=== PATIENT | male | born 1970 | race Caucasian/White ===

== ENCOUNTER 2017-08-04 12:54 | Emergency (ER) | payer SELFPAY ==
[~2017-08-04] VITALS: Ht 172.7 cm; Wt 68.0 kg
[2017-08-04 13:02] VITALS: BP 120/72; PULSE 54; RESP 16; TEMP 98.2; O2SAT 100
[2017-08-04] MEDS ORDERED: SODIUM CHLOR 0.9% 1000 ML INJ 1,000 ML IV ONE (13:14)
[2017-08-04] MEDS ORDERED: MORPHINE SULFATE 4 MG/ML INJ IV PUSH ONE (13:15)
[2017-08-04] MEDS ORDERED: SODIUM CHLORIDE 0.9% FLUSH 10 ML FLUSH IVF PRN (13:15)
[2017-08-04] MEDS ORDERED: PROCHLORPERAZINE INJ 10 MG/2 ML VIAL IVP ONE (13:15)
[2017-08-04] MEDS ORDERED: diphenhydrAMINE HCL 50 MG/ML VIAL IVP ONE (13:15)
[2017-08-04 13:16] VITALS: BP 130/59; PULSE 43; RESP 15; O2SAT 95; O2SAT 98
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
--- NOTE | 2017-08-04 13:49 | RADRPT ---
EXAM DATE/TIME: 08/04/2017 13:18 [facility] COMPARISON: CT BRAIN W/O CONTRAST, August 01, 2017, 4:29. INDICATIONS : Head pain, nausea, vomiting, low heart rate. RADIATION DOSE: 56.48 CTDIvol (mGy) MEDICAL HISTORY : Subdural hematoma 08/10/17 SURGICAL HISTORY : None. ENCOUNTER: Subsequent ACUITY: 3 days PAIN SCALE: 10/10 LOCATION: cranial TECHNIQUE: Multiple contiguous axial images were obtained of the head. Using automated exposure control and adj ustment of the mA and/or kV according to patient size, radiation dose was kept as low as reasonably a chievable to obtain optimal diagnostic quality images. DICOM format image data is available electro nically for review and comparison. FINDINGS: CEREBRUM: The ventricles are normal for age. There are stable bifrontal and bitemporal parenchymal hemorrhages. No new areas of hemorrhage. No midline shift. There may be a small lacunar type infarct in the late ral aspect of the left thalamus. No extra-axial fluid collections are seen. POSTERIOR FOSSA: The cerebellum and brainstem are intact. The 4th ventricle is midline. The cerebellopontine angle i s unremarkable. EXTRACRANIAL: The visualized portion of the orbits is intact. SKULL: The calvaria is intact. No evidence of skull fracture. CONCLUSION: 1. Stable bifrontal and bitemporal parenchymal hemorrhages. 2. Possible lacunar type infarct in the lateral aspect of the left thalamus. 3. No midline shift. No new areas of hemorrhage. Herman Clark MD on August 04, 2017 at 13:43 Board Certified Radiologist. This report was verified electronically.
[2017-08-04] MEDS ORDERED: MEDR4PAK PO (14:25)
[2017-08-04 15:26] VITALS: BP 109/63
== END 2017-08-04 16:40 | disposition home or self-care (01) ==
LOC: NEPC 12:54
DX: S06.360D Traumatic hemorrhage of cerebrum, unspecified, without loss of consciousness, subsequent encounter (principal); G44.319 Acute post-traumatic headache, not intractable; R11.2 Nausea with vomiting, unspecified; H53.149 Visual discomfort, unspecified; F17.200 Nicotine dependence, unspecified, uncomplicated; Z86.69 Personal history of other diseases of the nervous system and sense organs; V19.9XXD Pedal cyclist (driver) (passenger) injured in unspecified traffic accident, subsequent encounter
CPT/HCPCS: 70450; 96361; 96374; 96375; 99285; J0780; J1200; J2270; J7030